=== PATIENT | female | born 1955 | race Caucasian/White ===

== ENCOUNTER 2017-06-25 10:08 | Emergency (ER) | payer BC ==
[~2017-06-25] VITALS: Ht 167.6 cm; Wt 65.6 kg
[2017-06-25 10:21] VITALS: BP 161/105; TEMP 36.5; Ht 167.6 cm; Wt 65.6 kg
[2017-06-25] MEDS ORDERED: LEVO25TA5 PO (10:43)
[2017-06-25] MEDS ORDERED: AMOX875T PO (11:01)
[2017-06-25 11:17] VITALS: PULSE 69; O2SAT 97
--- NOTE | 2017-06-25 14:07 | EMERGENCY ROOM VISIT NOTE ---
History First contact with patient: 10:35 Chief Complaint: BITE Stated Complaint: TICK IN ARM History of Present Illness The patient is a 61 year old female who presents to the Emergency Room with complaints of a possible tick in her left upper arm. The patient reports that her was just found to have a tick and was running a fever. He is currently being prophylactically treated with antibiotics. The patient reports that she has been outside a lot lately, and denies any known injury to the arm. When the thought she had a tick, he tried to remove it without success. The patient is concerned that the tick has buried under the skin. She does report mild discomfort at the site, rating her pain a 2 out of 10. Tetanus immunization is up-to-date. Review of Systems 6 system review was performed and was negative except for pertinent positives and negatives as indicated in history of present illness Past Medical/Surgical History Medical Problems: (1) No significant past medical history Surgical Problems: (1) History of cataract surgery Family History FH: hypertension Social History Smoking Status: Never Smoker Alcohol Use: occasionally Marital Status: Occupation Status: unemployed Current/Historical Medications Scheduled Amoxicillin & Pot Clavulanate (Augmentin 875-125 mg), 1 TAB PO BID Levothyroxine Sodium (Levothyroxine Sodium), 1 TAB PO DAILY Physical Exam Vital Signs Date Time Temp Pulse Resp B/P (MAP) Pulse Ox O2 Delivery O2 Flow Rate FiO2 06/25/17 11:17 69 16 97 06/25/17 10:21 36.5 74 18 161/105 99 Room Air Physical Exam CONSTITUTIONAL: Healthy and well nourished. Alert and oriented X 3 with positive affect. MUSCULOSKELETAL: Full range of motion of all joints without discomfort. INTEGUMENTARY: Examination of the left posterior lateral triceps region shows a scabbed/dried blood is approximately 1 mm in diameter with minimal erythema. There is mild edema of the area. Close examination under magnification does not show any obvious or visible tick or remnants of such. NEUROLOGIC: No focal neurologic deficits noted. Medical Decision & Procedures ED Course Patient history and physical exam were performed. Nurse's notes were reviewed. Vital signs were reviewed, showing a blood pressure 161/105. Examination shows a scab that may have been from attempted foreign body removal by the . Otherwise, I do not see any obvious visualized tick or remnant parts. The patient was also educated that picks do not deana under the skin, therefore should have been easy to visualize the tick attached to the skin. I think it is more likely that the patient suffered some other type of injury or insect bite that caused this irritated area. The patient was provided a prescription for Augmentin should she develop any worsening peripheral erythema , swelling, red streaks or fever. She was encouraged to follow-up with her PCP as needed for further management or concerns. The patient was happy with plan of care, voiced understanding of all discharge instructions, and denied any pain at the time of discharge. The patient was also encouraged to follow-up with her PCP for blood pressure recheck. Medical Decision Blood Pressure Screening Patient's blood pressure: Elevated blood pressure Blood pressure disposition: Referred to PCP Impression Primary Impression: Wound of left upper extremity Additional Impression: Elevated blood pressure reading Departure Information Dispostion Home / Self-Care Prescriptions Amoxicillin & Pot Clavulanate (Augmentin 875-125 mg) 1 Tab Tab 1 TAB PO BID for 10 Days, #20 TAB Prov: Rocael Johnson PA 06/25/17 Forms HOME CARE DOCUMENTATION FORM, IMPORTANT VISIT INFORMATION Patient Instructions My [facility] [place] Additional Instructions Intermittently apply heat to area. If redness or swelling worsens, take Augmentin as prescribed. Follow-up with your family doctor as needed for further wound management. Problem Qualifiers Primary Impression: Wound of left upper extremity Encounter type: initial encounter Qualified Codes: S41.102A - Unspecified open wound of left upper arm, initial encounter
== END 2017-06-25 11:18 | disposition home or self-care (01) ==
LOC: C.EDB 10:09 → C.EDD 11:18
DX: S41.102A Unspecified open wound of left upper arm, initial encounter (principal); W57.XXXA Bitten or stung by nonvenomous insect and other nonvenomous arthropods, initial encounter